=== PATIENT | female | born 2000 | race Caucasian/White ===

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

== ENCOUNTER → 2018-05-08 | Outpatient (CLI) | payer OTHER ==
--- NOTE | 2018-05-08 11:26 | WOMENS IMAGING REPORT ---
EXAM DESCRIPTION: U/S BREAST UNILAT LIMITED COMPLETED DATE/TIME: 05/08/2018 10:35 am REASON FOR STUDY: N63.20 UNSPECIFIED LUMP IN THE LEFT BREAST, UNSPECIFIED QUADRANT N63.20 UNSPECIFI ED LUMP IN THE LEFT BREAST, UNSPECIFIED QUAD COMPARISON: None. TECHNIQUE: Real-time and static grayscale imaging performed of the left breast targeted to the area of clinical/mammographic concern. Selected color Doppler images recorded. LIMITATIONS: None. FINDINGS: MASS: In the superior breast there is a 4 x 6 x 10 mm circumscribed homogeneous solid nodu le. This is oriented parallel to the skin. Smooth margins. No distal shadowing. OTHER: No other significant finding. IMPRESSION: Homogeneous circumscribed nodule in the superior breast. This is probably a fibroadenom a. Recommend short-term interval followup to evaluate stability. BIRAD: 3 Probably benign finding. Initial short-interval follow-up suggested. RECOMMENDATION: RECOMMENDED FOLLOW-UP: Repeat ultrasound in 6 months. COMMENT: The [employer] [employer] ([employer]) has developed recommendations for screening MRI of the breasts in certain patient populations, to be used in conjunction with mammography. Breast MRI s urveillance may be appropriate for women with more than 20% lifetime risk of developing breast cancer as determined by genetic testing, significant family history of the disease, or history of mantle r adiation for Hodgkins Disease. ACR Practice Guidelines 2007. TECHNICAL DOCUMENTATION: JOB ID: [id number] [employer]- All Rights Reserved Reading location - IP/workstation name: [email or web address]
== END ==
LOC: WI 10:00
PROVIDERS: ATTEND Nurse Practitioner Family
DX: N63.20 Unspecified lump in the left breast, unspecified quadrant (principal)
CPT/HCPCS: 76642

== ENCOUNTER 2018-10-18 20:57 | Emergency (ER) | payer OTHER ==
--- NOTE | 2018-10-19 02:05 | ER Document Report ---
ED General - General Chief Complaint: Lip Swelling Stated Complaint: SWELLING IN FACE Time Seen by Provider: 10/19/18 02:05 Primary Care Provider: ROCIO CRUZ FNP-C [Primary Care Provider] - Follow up as needed Notes: Patient is a 18-year-old female that presents to the emergency department for chief complaint of lip swelling. Patient has a history of seasonal allergies, but no food allergies that she is aware of, and states that around 7:30 PM today she started having swelling in her left upper lip, she did take some Benadryl at home, it did seem to make the swelling go down, but it was rather swollen bef ore. She denies having any pain or feeling like her throat was closing, shortness of breath, wheezing, nausea or vomiting. She denies having any abdominal pain, or rash associated with this. She cannot think of any allergens she was exposed to today, and does not think she was stung by any insects. She states she has seasonal allergies, but has never had anything like this before, she states she is had occasional mild lip swelling but nothing to this extent. At this time she states she is feeling better, and the swelling has gone down. Past Medical History: Seasonal allergies Past Surgical History: Denies surgical history Social History: Denies tobacco, alcohol or drug use. Family History: Reviewed and noncontributory for presenting illness Allergies: Reviewed, see documented allergy list. REVIEW OF SYSTEMS: Other than noted above, the 12 point review of systems was reviewed with the patient and were negative, all pertinent findings are included in the HPI. PHYSICAL EXAMINATION: Vital signs reviewed, nursing noted reviewed. GENERAL: Well-appearing, well-nourished and in no acute distress. HEAD: Atraumatic, normocephalic. EYES: Eyes appear normal, extraocular movements intact, sclera anicteric, conjunctiva are normal. ENT: nares patent, oropharynx clear without exudates. Moist mucous membranes. There is noted to be mild left upper lip angioedema, no tongue edema, uvula midline, and nonedematous. NECK: Normal range of motion, supple without lymphadenopathy LUNGS: Breath sounds clear to auscultation bilaterally and equal. No wheezes rales or rhonchi. HEART: Regular rate and rhythm without murmurs ABDOMEN: Soft, nontender, normoactive bowel sounds. No rebound, guarding, or rigidity. No masses appreciated. EXTREMITIES: Nontender, good range of motion, no pitting or edema. NEUROLOGICAL: No focal neurological deficits. Moves all extremities spontaneously Motor and sensory grossly intact on exam. PSYCH: Normal mood, normal affect. SKIN: Warm, Dry, normal turgor, no rashes or lesions noted on exposed skin TRAVEL OUTSIDE OF THE [place] IN LAST 30 DAYS: No - Related Data Allergies/Adverse Reactions: No Known Allergies Allergy (Verified 10/18/18 21:01) Past Medical History - Social History Smoking Status: Never Smoker Family History: Arthritis, CVA, Hyperlipidemia, Hypertension, Thyroid Disfunction. denies: CAD, COPD, DM, Malignancy Patient has suicidal ideation: No Patient has homicidal ideation: No Renal/ Medical History: Denies: Hx Peritoneal Dialysis Physical Exam - Vital signs Vitals: Temp Pulse Resp BP Pulse Ox 98.8 F 90 18 129/80 H 100 10/18/18 21:03 10/18/18 21:03 10/18/18 21:03 10/18/18 21:03 10/18/18 21:03 Course - Re-evaluation Re-evalutation: Patient seen and examined, vital signs reviewed, patient appeared well, she had some mild lip angioedema, which seem to be improved, from prior pictures that the patient had showed me. I will give her prednisone, and for additional days, advised her to continue taking and histamines, and will prescribe her with an EpiPen and advised her to follow-up with her primary care, to have further allergy testing as it was not identifiable today. Patient was agreed with this plan of care, and discharged home. - Vital Signs Vital signs: Temp Pulse Resp BP Pulse Ox 98.8 F 90 18 129/80 H 100 10/18/18 21:03 10/18/18 21:03 10/18/18 21:03 10/18/18 21:03 10/18/18 21:03 Discharge - Discharge Clinical Impression: Angioedema of lips Qualifiers: Encounter type: initial encounter Qualified Code(s): T78.3XXA - Angioneurotic edema, initial encounter Condition: Stable Disposition: HOME, SELF-CARE Instructions: Angioedema ([facility]) Additional Instructions: Please follow-up with your primary care physician, as you may need some allergy testing, complete the entire course of prednisone that has been prescribed, you should also take antihistamine such as Zyrtec and Pepcid, or take Benadryl to help further decrease the swelling. You have been prescribed an EpiPen, I recommend using this if you have any worsening of your symptoms, difficulty breathing, or feel like her throat is closing. Prescriptions: Epinephrine [Epipen] 0.3 mg IJ PRN PRN #1 auto.injct PRN Reason: severe allergic reaction Prednisone 40 mg PO DAILY #16 tablet Referrals: ROCOI CRUZ FNP-C [Primary Care Provider] - Follow up in 3-5 days
[2018-10-19] MEDS ORDERED: PREDNISONE 20 MG TABLET PO ONE (02:22)
[2018-10-19 03:01] VITALS: BP 126/78
== END 2018-10-19 03:01 | disposition home or self-care (01) ==
LOC: ER 20:57
DX: R22.0 Localized swelling, mass and lump, head (principal); T78.3XXA Angioneurotic edema, initial encounter; X58.XXXA Exposure to other specified factors, initial encounter
CPT/HCPCS: 99283; J7512